=== PATIENT | male | born 1955 | race Caucasian/White ===

== ENCOUNTER 2019-03-28 12:50 | Emergency (ER) | payer BC, MEDICARE, OTHER ==
[~2019-03-28] VITALS: Ht 177.8 cm; Wt 107.5 kg
[2019-03-28 12:54] VITALS: BP 118/92
--- NOTE | 2019-03-28 13:14 | NUR ---
PRINCESS AARON AT BEDSIDE FOR EVAL.
[2019-03-28] MEDS ORDERED: ACETAMINOPHEN 325 MG TABLET PO ONE (13:30)
--- NOTE | 2019-03-28 13:46 | NUR ---
PT TO RADIOLOGY FOR HEAD, C SPINE CT SCAN VIA [facility].
--- NOTE | 2019-03-28 15:14 | NUR ---
C COLLAR D/C'D. PT D/C HOME IN STABLE CONDITION.
== END 2019-03-28 15:17 | disposition home or self-care (01) ==
LOC: ER 12:53
DX: S06.0X0A Concussion without loss of consciousness, initial encounter (principal); M54.2 Cervicalgia; M54.5 Low back pain; R51 Headache; E78.00 Pure hypercholesterolemia, unspecified; Z98.890 Other specified postprocedural states; Z88.0 Allergy status to penicillin; V49.49XA Driver injured in collision with other motor vehicles in traffic accident, initial encounter; Y93.89 Activity, other specified; Y92.410 Unspecified street and highway as the place of occurrence of the external cause; Y99.8 Other external cause status
CPT/HCPCS: 70450; 72100; 72125; 99284; L0172